=== PATIENT | male | born 1995 | race African-American/Black ===

== ENCOUNTER 2020-03-10 16:21 | Emergency (ER) | payer OTHER, SELFPAY ==
--- NOTE | ~2020-03-10 | US_ITS ---
EXAMINATION: US scrotum doppler DATE: 03/10/2020 16:53 INDICATION: Right testicular pain. TECHNIQUE: Grayscale and Doppler ultrasound images of the testes were obtained. COMPARISON: None. FINDINGS: The right testis measures 3.3 x 2.8 x 1.8 cm. The left testis measures 3.1 x 2.3 x 2.1 cm. There is normal vascular flow to both testes. The right epididymis is normal with normal vascular amx w. The left epididymis is normal with normal vascular flow. There is no varicocele or hydrocele. IMPRESSION: 1. Normal testes. Reviewed, dictated and finalized at location A. IMPRESSION: 1. Normal testes.
--- NOTE | ~2020-03-10 | CT_ITS ---
EXAMINATION: CT abdomen pelvis wo con DATE: 03/10/2020 18:06 INDICATION: Right testicular pain. Lower abdominal pain. TECHNIQUE: Computed tomography (CT) of the abdomen and pelvis was performed without intravenous contr ast. Automated exposure control and iterative reconstruction technique were employed. The dose-length product was 273.12 mGy-cm. COMPARISON: None FINDINGS: Lung bases are clear. Visualized inferior heart is normal. No pericardial or pleural effusion. Liver, gallbladder, spleen, pancreas, bilateral adrenal glands and kidneys are normal. Appendix is normal. No abnormal bowel wall thickening or obstruction. There are phleboliths in the pelvis. Bladder is nor mal. Small amount of ascites in the deep pelvis. No abscess or free intraperitoneal gas. No pathologi bladimir enlarged abdominal or pelvic lymphadenopathy. Bilateral decreased femoral head neck offset and bilateral os acetabula which suggests possible of cam type femoral acetabular impingement. IMPRESSION: 1. Small amount of nonspecific ascites in the deep pelvis of indeterminate etiology. Reviewed, dictated and finalized at location A. IMPRESSION: 1. Small amount of nonspecific ascites in the deep pelvis of indeterminate etio logy.
[2020-03-10 16:29] VITALS: BP 136/79; PULSE 77; RESP 18; TEMP 36.8; O2SAT 98
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
[2020-03-10 17:07] LABS: Basophils Percent Auto 0.3 % (0.2-1.2); Eosinophils Percent Auto 0.4 % (0-4.4); Hematocrit 46.5 % (42.0-52.0); Immature Granulocyte Absolute 0.02 K/mm3 (0.00-0.031); Immature Granulocyte Percent A 0.3 % (0-0.5); Lymphocytes Absolute Auto 1.48 K/mm3 (0.9-3.2); Lymphocytes Percent Auto 21.8 % (18.3-44.2); Mean Corpuscular HGB Conc 32.3 g/dl (32-36); Mean Corpuscular Hemoglobin 28.5 pg (26-34); Mean Corpuscular Volume 88.4 fl (80-100); Monocytes Absolute Auto 0.4 K/mm3 (0.1-0.6); Monocytes Percent Auto 5.8 % (2.6-8.5); Neutrophils Absolute Auto 4.8 K/mm3 (1.3-6.7); Neutrophils Percent Auto 71.4 % (45.5-73.1); Platelet Count Result 227 k/mm3 (150-375); Red Blood Count 5.26 M/mm3 (4.6-6.20); White Blood Count 6.8 K/mm3 (4.5-10.0)
[2020-03-10 17:19] LABS: Anion Gap 9 mmol/L (8-16); Blood Urea Nitrogen 9 mg/dL (9-20); Calcium 9.6 mg/dL (8.4-10.2); Carbon Dioxide 31 mmol/L (22-30); Chloride 102 mmol/L (98-107); Estimated CRCL calculation 121 ml/min; Estimated Glomerular Filt Rate > 60; Glucose 98 mg/dL (75-110); Potassium 3.5 mmol/L (3.4-5.0); Sodium 142 mmol/L (137-145)
[2020-03-10 17:35] LABS: Add Urine Microscopic? YES; Appearance Urine Clear (Clear); Bilirubin Urine Negative (Negative); Blood Urine 2+ (Negative); Color Urine Straw (Yellow); Glucose Urine UA Negative (Negative); Ketones Urine Negative (Negative); Leukocyte Esterase Ur Negative LEU/UL (Negative); Mucus Urine Rare /lpf; Nitrate Urine Negative (Negative); Protein Urine Negative (Negative); RBC Urine >75 /hpf (0-2); Specific Grav Ur 1.013 (1.001-1.035); Urobilinogen Urine Negative mg/dL (<2.0); WBC Urine 0-3 /hpf
[2020-03-10 18:30] VITALS: BP 119/79; PULSE 65; RESP 20; O2SAT 99
[2020-03-10 19:04] VITALS: BP 119/75; PULSE 65; RESP 20; O2SAT 100
== END 2020-03-10 19:06 | disposition home or self-care (01) ==
PROVIDERS: Emergency Provider Emergency Medicine
DX: N50.811 Right testicular pain (principal); R31.9 Hematuria, unspecified; R18.8 Other ascites
CPT/HCPCS: 36415; 74176; 76870; 80048; 81001; 85025; 93976; 99284

== ENCOUNTER 2021-11-13 08:33 | Emergency (ER) | payer OTHER, SELFPAY ==
--- NOTE | 2021-11-13 08:35 | ED.MALEGU ---
HPI - Male Genitourinary General Chief complaint: Urogenital-Male Stated complaint: STD Time Seen by Provider: 11/13/21 08:42 Source: patient, RN notes reviewed and old records reviewed Mode of arrival: ambulatory Limitations: no limitations History of Present Illness HPI Narrative: 26-year-old male presents to the [facility] with complaints of burning with urination for 3 days. Has recently had unprotected sex. No abdominal pain, nausea vomiting or diarrhea. Denies fevers MD Complaint: dysuria and possible STD exposure Onset (ago): day(s) (3) Duration: constant Related Data Sexually active: Yes Allergies Allergy/AdvReac Type Severity Reaction Status Date / Time No Known Allergies Allergy Verified 11/13/21 08:43 Review of Systems Review of Systems: All systems reviewed & are unremarkable except as noted in HPI and below Constitutional: Constitutional: Reports no additional constitutional complaints, Denies chills and Denies fever(s) Eyes: Eyes: Reports no additional eye complaints ENT: Reports system reviewed and no additional complaints, except as documented Cardiovascular: Cardiovascular: Reports no additional cardiovascular complaints Respiratory: Respiratory: Reports no additional respiratory complaints Gastrointestinal: Gastrointestinal: Reports no additional gastrointestinal complaints Genitourinary: Genitourinary: Reports as per HPI and Reports dysuria Musculoskeletal: Musculoskeletal: Reports no additional musculoskeletal complaints Integumentary/Breasts: Skin/Breast: Reports system reviewed and no additional complaints, except as docu Neurologic: Reports system reviewed and no additional complaints, except as documented Psychiatric: Psychiatric: Reports no additional psychiatric complaints Allergic/Immunologic: Allergic/Immunologic: Reports no additional allergic/immunologic complaints PMFSH Past Medical History Medical History (Updated 11/13/21 @ 09:01 by Rianna Hernandez APRN) Patient denies significant medical history Surgical History Surgical History (Updated 11/13/21 @ 08:58 by Rianna Hernandez APRN) No pertinent past surgical history Social History Social History Smoking status: Never smoker Gender identity (if verbalized by the patient): Male Comments At the time of my signature, I reviewed and agree with the nursing past medical, surgical, social, and family history. There is no relevant family history pertinent to the patient complaint. Exam Const: General: healthy appearing, no acute distress and alert Nutritional Appearance: well nourished Orientation/consciousness: patient oriented x3 Limitations: no limitations HENMT: Head: normal to inspection Ears: external ears normal Eyes: General: appearance normal, both eyes and all related structures Pupils: Equal, round and reactive pupils present Neck: Neck: normal visual inspection, no lymphadenopathy and no meningeal signs Chest: Chest palpation & inspection: normal inspection of the chest Resp: Effort & Inspection: normal respiratory effort and no use of accessory muscles Auscultation: clear to auscultation bilaterally, no crackles, no rales, no rhonchi and no wheezes Cardio: Rate: regular rate Rhythm: regular rhythm GI: GI Palp: Yes Soft to palpation and No Tenderness to palpation present (GI) : Male General Exam: Yes normal external exam, No erythema, No inguinal lymphadenopathy and No tenderness Penis: Yes normal penis and Yes circumcised Meatus: meatal discharge Scrotum: scrotum normal, testes descended bilaterally and no scrotal swelling Testes: Testes normal and no epidiymal tenderness Other: Chaperoned by Leda DICKERSON Back/Spine/Pelvis: Cervical Spine: normal cervical lordosis Thoracic/Lumbar Spine: thoracic and lumbar spine normal to inspection Skin: General skin exam: normal color Rashes: no rashes Wounds: no wounds Neuro: General: patien
[2021-11-13 08:43] VITALS: BP 115/101; PULSE 89; RESP 16; TEMP 37.2; O2SAT 99
[2021-11-13 08:45] VITALS: BP 115/101; PULSE 89; RESP 16; TEMP 37.2; O2SAT 99
--- NOTE | 2021-11-13 09:35 | PC.NURSE ---
0925--pt states that he tried again and couldnt go, discussed with pt about doing the penile swab, and pt states that he is just nervous and needed another minute to think about it. MAT[employer]ITY [employer] aware.
[2021-11-13] MEDS: cefTRIAXone 500 MG, LIDOCAINE HCL 1% LOCAL INJ 1 ML IM (09:52)
== END 2021-11-13 10:27 | disposition home or self-care (01) ==
PROVIDERS: Emergency Provider Nurse Practitioner
DX: Z20.2 Contact with and (suspected) exposure to infections with a predominantly sexual mode of transmission (principal)
CPT/HCPCS: 87491; 87591; 87661; 96372; 99213; G0463; J0696